=== PATIENT | female | born 1955 | race Caucasian/White ===

== ENCOUNTER 2023-04-07 22:22 | Inpatient (IN) | payer BC, OTHER ==
[2023-04-07 22:32] VITALS: BMI 26.6
[2023-04-07] MEDS ORDERED: FAMOTIDINE 20 MG/50 ML IVPB 20 MG/50 ML MG IVPB ONE ×2 (23:24→23:27)
[2023-04-07] MEDS ORDERED: SODIUM CHLORIDE 1,000 ML IV STA (23:24)
[2023-04-07] MEDS ORDERED: ONDANSETRON 4 MG/2 ML VIAL IVPUSH ONE (23:24)
[2023-04-07] MEDS ORDERED: ONDANSETRON 4 MG/2 ML VIAL ONE (23:27)
[2023-04-07 23:36] LABS: BASO % 1.1 % (0-2.0); HEMATOCRIT 43.7 % (32.4-45.2); HEMOGLOBIN 14.8 GM/dL (10.7-15.3); LYMPH % 6.7 % (8-40); MCH 31.2 pg (25.7-33.7); MEAN CELL VOLUME 91.7 fl (80-96); MEAN PLT VOLUME 8.9 fl (7.5-11.1); MONO % 4.6 % (3.8-10.2); NEUT % 86.6 % (42.8-82.8); PLATELET COUNT 260 10^3/uL (134-434); RBC 4.76 M/mm3 (3.60-5.2); RDW 14.2 % (11.6-15.6); WHITE BLOOD COUNT 11.4 K/mm3 (4.0-10.0)
[2023-04-07 23:42] LABS: INR 0.96 (0.83-1.09); PROTHROMBIN TIME (PATIENT) 11.1 SEC (9.7-13.0)
[2023-04-07 23:53] LABS: POTASSIUM 4.3 mmol/L (3.5-5.1)
[2023-04-07 23:55] LABS: CALCIUM 8.9 mg/dL (8.5-10.1)
[2023-04-07 23:56] LABS: ALBUMIN 3.4 g/dl (3.4-5.0); BLOOD UREA NITROGEN 19.9 mg/dL (7-18); MAGNESIUM 2.3 mg/dL (1.8-2.4)
[2023-04-07 23:58] LABS: CREATININE 0.8 mg/dL (0.55-1.3)
[2023-04-08] LABS: BILIRUBIN,TOTAL 0.4 mg/dL (0.2-1); TOT PROT 6.8 g/dl (6.4-8.2)
[2023-04-08 02:08] LABS: PH,URINE 5.5 (5.0-8.0); URINE APPEARANCE CLEAR; URINE BILIRUBIN NEGATIVE (NEGATIVE); URINE COLOR YELLOW; URINE GLUCOSE (UA) NEGATIVE (NEGATIVE); URINE KETONE NEGATIVE (NEGATIVE); URINE LEUK ESTERASE NEGATIVE (NEGATIVE); URINE NITRITE NEGATIVE (NEGATIVE); URINE PROTEIN NEGATIVE (NEGATIVE); URINE UROBILINOGEN 0.2 mg/dL (0.2-1.0)
[2023-04-08] MEDS ORDERED: ONDANSETRON 4 MG/2 ML VIAL IVPUSH PRN (04:39)
[2023-04-08] MEDS ORDERED: SODIUM CHLORIDE 1,000 ML IV SCH (04:45)
[2023-04-08] MEDS ORDERED: BETAMETHASONE DIP 0.05% TP LOTION 30 ML BOTTLE TP SCH (06:52)
[2023-04-08] MEDS ORDERED: MINERAL OIL ENEMA 133 ML ENEMA RC ONE (07:15)
[2023-04-08] MEDS ORDERED: POLYETHYLENE GLYCOL (HEALTHYLAX) 3350 17 GM PACKET PO ONE (08:00)
[2023-04-08] MEDS ORDERED: POLYETHYLENE GLYCOL (HEALTHYLAX) 3350 17 GM PACKET ONE (08:49)
[2023-04-08] MEDS ORDERED: ENOXAPARIN NA (PORCINE) 40 MG/0.4 ML DISP.SYRIN SQ ONE (08:49)
[2023-04-08] MEDS ORDERED: FAMOTIDINE 20 MG/50 ML IVPB 20 MG/50 ML MG IVPB ONE (08:50)
[2023-04-08] MEDS ORDERED: ENOXAPARIN NA (PORCINE) 40 MG/0.4 ML DISP.SYRIN SQ SCH (10:00)
[2023-04-08] MEDS ORDERED: FAMOTIDINE 20 MG/50 ML IVPB 20 MG/50 ML MG IVPB SCH (10:00)
[2023-04-08 17:24] VITALS: BP 141/72; PULSE 71; RESP 16; TEMP 98
== END 2023-04-08 16:52 | disposition home or self-care (01) | DRG 390 ==
LOC: JER 22:22 → JERBED 04-08 02:58
PROVIDERS: ADMIT Internal Medicine; ATTEND Internal Medicine
DX: K56.600 Partial intestinal obstruction, unspecified as to cause (principal); I10 Essential (primary) hypertension; L30.9 Dermatitis, unspecified
CPT/HCPCS: 36415; 71045-TC-FY; 74019-TC-FY; 74177-TC; 80053; 81003; 83690; 83735; 84484; 85025; 85610; 86850; 86900; 86901; 93005; 93010; 99285-25; Q9967